=== PATIENT | male | born 1990 | race Caucasian/White ===

== ENCOUNTER 2016-12-20 09:19 | Emergency (ER) | payer MEDICAID ==
[~2016-12-20] VITALS: Ht 162.6 cm; Wt 90.0 kg
[2016-12-20] MEDS ORDERED: KETOROLAC 60MG/2ML VIAL IM ONE (10:00)
[2016-12-20] MEDS ORDERED: ONDANSETRON 4MG ODT PO ONE (10:00)
[2016-12-20 11:05] VITALS: BP 120/70
== END 2016-12-20 11:15 | disposition home or self-care (01) ==
LOC: ER 10:11
DX: G51.0 Bell's palsy (principal); R51 Headache
CPT/HCPCS: 70450; 96372; 99284; J1885; Q0162; Z7610